=== PATIENT | male | born 1960 | race African-American/Black ===

== ENCOUNTER 2016-09-07 08:01 | Day surgery (SDC) | payer OTHER ==
[2016-09-03 10:04] LABS: HEMATOCRIT 48.1 % (42.0-52.0); HEMOGLOBIN 16.2 g/dL (14.0-18.0); MCH 30.5 PG (27-31); MCHC 33.7 g/dL (33-37); MCV 90.6 FL (81-99); MPV 9.7 FL (7.4-10.4); RBC 5.31 XMIL (4.7-6.1)
[2016-09-03 10:12] LABS: INR 1.04; PTT 26.6 Seconds (22.0-36.0)
[2016-09-03 10:26] LABS: AGAP 13; BUN 16 mg/dL (8-22); CALCIUM 9.4 mg/dL (8.8-10.2); CHLORIDE 98 mmol/L (98-107); COSMO 281; POTASSIUM 3.8 mmol/L (3.5-5.1); SODIUM 140 mmol/L (136-145); TCO2 29 mmol/L (25-35)
[2016-09-07] MEDS ORDERED: LR 1,000 ML ONE (08:13)
[2016-09-07] MEDS ORDERED: REGLAN ONE (08:13)
[2016-09-07] MEDS ORDERED: PEPCID ONE (08:13)
[2016-09-07] MEDS ORDERED: KEFZOL 2 GM/D5W 50 ML ONE (08:13)
[2016-09-07 16:02] LABS: URINE MICRO REVIEW NEEDED? NO; URINE SOURCE CATH
[2016-09-07] MEDS ORDERED: D5 1/2 NS 1,000 ML ONE (16:05)
[2016-09-07] MEDS ORDERED: FENTANYL ONE (16:06)
[2016-09-07] MEDS ORDERED: DIPRIVAN 1% ONE (16:07)
[2016-09-07] MEDS ORDERED: VERSED ONE (16:07)
[2016-09-07 16:09] LABS: BILIRUBIN URINE NEGATIVE (NEGATIVE); BLOOD URINE NEGATIVE (NEGATIVE); COLOR YELLOW; GLUCOSE URINE NEGATIVE (NEGATIVE); LEUKOCYTES URINE NEGATIVE (NEGATIVE); NITRITE URINE NEGATIVE (NEGATIVE); PH URINE 5.5; PROTEIN URINE NEGATIVE (NEGATIVE); TURBIDITY URINE CLEAR (CLEAR); UROBILINOGEN URINE NORMAL (NORMAL)
[2016-09-07 16:10] LABS: UR EPITHELIAL CELLS <10 /HPF (<10); URINE BACTERIA NEGATIVE /HPF; URINE RBC <10 /HPF (<10); URINE WBC <10 /HPF (<10)
[2016-09-07] MEDS: DILAUDID ONE ×2 (16:34→16:40)
[2016-09-07] MEDS ORDERED: LR 3,000 ML ONE (16:45)
[2016-09-07] MEDS ORDERED: XYLOCAINE-MPF 2% ONE (16:45)
[2016-09-07] MEDS ORDERED: QUELICIN (DOSE) ONE (16:45)
[2016-09-07] MEDS ORDERED: ZEMURON ONE (16:45)
[2016-09-07] MEDS ORDERED: NEOSTIGMINE ONE (16:45)
[2016-09-07] MEDS ORDERED: ZOFRAN ONE (16:45)
[2016-09-07] MEDS ORDERED: DECADRON ONE (16:45)
[2016-09-07] MEDS ORDERED: ROBINUL ONE (16:45)
[2016-09-07] MEDS ORDERED: OFIRMEV 1000 MG/ISOTONIC SOLN 100 ML ONE (16:45)
[2016-09-07] MEDS ORDERED: B & O 15A SUPP PR PRN (18:36)
[2016-09-07] MEDS ORDERED: NORCO-7.5 PO PRN (18:36)
[2016-09-07] MEDS ORDERED: SODIUM CHLORIDE 0.9% INJ PRN (18:36)
[2016-09-07] MEDS ORDERED: LABETALOL IV PRN (18:36)
[2016-09-07] MEDS ORDERED: ZOFRAN IV PRN (18:36)
[2016-09-07] MEDS ORDERED: DITROPAN PO PRN (18:36)
[2016-09-07] MEDS ORDERED: PHENERGAN IV PRN (18:36)
[2016-09-07] MEDS ORDERED: PHENERGAN PR PRN (18:36)
[2016-09-07] MEDS ORDERED: BENADRYL IV PRN (18:36)
[2016-09-07] MEDS ORDERED: TYLENOL PO PRN (18:36)
[2016-09-07] MEDS ORDERED: BENADRYL LIQUID PO PRN (18:36)
[2016-09-07] MEDS ORDERED: PHENERGAN PO PRN (18:36)
[2016-09-07] MEDS ORDERED: DILAUDID IV PRN (18:43)
[2016-09-07] MEDS ORDERED: PNEUMOVAX 23 IM ONE (20:00)
[2016-09-07] MEDS ORDERED: CHLORASEPTIC SORE THROAT LOZENGE MT PRN (20:42)
[2016-09-07] MEDS: D5 1/2 NS 1,000 ML IV SCH (22:34)
[2016-09-07] MEDS: COLACE PO SCH (22:36)
[2016-09-07] MEDS: KEFZOL 2 GM/D5W 50 ML IV SCH (22:37)
[2016-09-07] MEDS: PERIDEX MT SCH (22:42)
[2016-09-08] MEDS: D5 1/2 NS 1,000 ML IV SCH (05:28)
[2016-09-08] MEDS: KEFZOL 2 GM/D5W 50 ML IV SCH (05:57)
[2016-09-08 06:07] LABS: HEMATOCRIT 42.8 % (42.0-52.0); HEMOGLOBIN 14.3 g/dL (14.0-18.0); MCH 30.3 PG (27-31); MCHC 33.4 g/dL (33-37); MCV 90.7 FL (81-99); MPV 9.5 FL (7.4-10.4); RBC 4.72 XMIL (4.7-6.1)
[2016-09-08 06:20] LABS: AGAP 12; BUN 12 mg/dL (8-22); CALCIUM 8.9 mg/dL (8.8-10.2); CHLORIDE 98 mmol/L (98-107); COSMO 275; POTASSIUM 4.4 mmol/L (3.5-5.1); SODIUM 137 mmol/L (136-145); TCO2 27 mmol/L (25-35)
[2016-09-08 06:26] LABS: CREATININE BODY FLUID 2.1 mg/dL
[2016-09-08 07:41] VITALS: BP 105/63
[2016-09-08] MEDS: COLACE PO SCH (08:39)
[2016-09-08] MEDS: PERIDEX MT SCH (08:40)
[2016-09-08] MEDS ORDERED: NORVASC PO SCH (09:00)
--- NOTE | 2016-09-08 10:53 | PROGRESS NOTE ---
DATE: 09/08/2016 SUBJECTIVE: Mr. Mcbride had a good night overnight. He reports pain which is controlled with oral medications. He has ambulated this morning. OBJECTIVE: Vital signs: T 98.6, P 73, BP 105/63, urine output was recorded 4715 mL, his drain put out 80 mL. General: In no acute distress. Cardiovascular: Regular rhythm. Abdomen: Appropriately tender, nondistended. Incisions were clean, dry, and intact. KLEBER drain has serosanguineous fluid in the bulb, Oreilly catheter is draining straw-colored urine. LABORATORY DATA: His white cell count is 13,000, hematocrit is 43. Creatinine is 1.1. His KLEBER creatinine is 2.1 ASSESSMENT AND PLAN: A 56-year-old male status post laparoscopic lysis of adhesions, robot- assisted laparoscopic prostatectomy. I discussed with the patient appropriate postsurgical care. We agreed to remove the drain. He requested something for discomfort of the head of the penis from the catheter. PLAN: 1. Remove KLEBER drain. 2. Discharge home with Oreilly catheter. 3. He will follow up with me on 09/13/2016 for Oreilly catheter removal, pathology review, and wound check. 4. He is going home with prescriptions for [place] 10, Cipro, Ditropan, and lidocaine 2% jelly.
--- NOTE | 2016-10-11 12:40 | OPERATIVE NOTE ---
PROCEDURE DATE: 09/07/2016 SURGEON: Dr. Oneal Ramesh. PREOPERATIVE DIAGNOSES: 1. Prostate cancer. 2. History of open colectomy. PRIMARY PROCEDURES: 1. Extensive laparoscopic lysis of adhesions. 2. Robotic-assisted laparoscopic prostatectomy. INDICATIONS: A 56-year-old male with history of partial colectomy who presented with elevated PSA. He underwent prostate biopsy which revealed multifocal [place] 6 prostate adenocarcinoma. He was counseled on treatments options and elected to proceed with robotic prostatectomy. He was counseled on the risk of having adhesions after extensive surgery in the past. FINDINGS: Significant intra-abdominal adhesions of the mesentery and the bowel to the anterior abdominal wall. Adequate hemostasis at the conclusion of the case. Fairly wide bladder neck. Nearly watertight vesicourethral anastomosis. DESCRIPTION OF PROCEDURE: After obtaining informed consent, patient was brought to the operating room. Perioperative antibiotics and laryngeal mask anesthesia were administered. He was placed in lithotomy position with the upper and lower extremities appropriately padded. An 18-[place] Oreilly catheter was introduced in a sterile field after he was prepped and draped in sterile fashion. We made a small stab incision in his left upper quadrant, given this midline scar and history of colectomy. A Veress needle connected to a saline-filled syringe was introduced. We confirmed positive drop test, followed by aspiration of fluid in the syringe without evidence of GI contents or blood. We then insufflated his pneumoperitoneum to 15 mmHg. Bovie electrocautery was used to make skin incisions and I first placed a 12 mm executive assistant trocar in the left upper quadrant. The robotic camera was then introduced through the trocar and his abdominal cavity was inspected. He had an extensive amount of adhesions on the ventral abdominal wall which involved both mesentery and small bowel. I then placed an 8 mm trocar through the standard prostatectomy trocar site and used laparoscopic scissors to meticulously dissect the bowel and mesentery off the abdominal wall. In a couple of areas, bowel came close enough where I trimmed out a small amount of the abdominal wall fascia in order to eliminate the chance of bowel injury. I spent approximately 45 minutes dissecting the adhesions. Eventually, we were able to place the rest of the trocars and the adhesions were all taken down. We then placed the patient in steep Trendelenburg position and docked the robot. We began by mobilizing part of the sigmoid colon, as it appeared to be fairly stuck. I was eventually able to dissect toward his rectum and incise the peritoneum approximately 3 cm above the rectum. The right vas deferens was identified, isolated, and transected, followed by identification of the right seminal vesicle. I used monopolar scissors and avoided cautery laterally to decrease injury to neurovascular bundles. We then performed the same thing on the left side with dissection, isolation, and transection of vas deferens, followed by identification and isolation of left seminal vesicle. We then dissected anterior to the vas deferens to the level of the prostate, and posterior to the vas deferens through Denonvilliers fascia into perirectal plane. Following that, we turned our attention to gain access to the space of Retzius. The medial umbilical ligament was incised laterally on either side and the bladder was dropped. Fat was reflected off the endopelvic fascia. I then incised the endopelvic fascia and the lateral edge of prostate and followed dissection toward its apex. This was done bilaterally. Puboprostatic ligaments were sharply divided. The superficial dorsal venous complex was controlled with bipolar electrocautery. Deep dorsal venous complex was controlled with a 0 V-Loc suture in a [id number] fashion and anterior periosteal elevation. Subsequent to that, I turned attention to the level of the bladder neck, which was identified by gentle tugging on the Oreilly. We then made incision with monopolar cautery and eventually the bladder neck was visualized. It was transected circumferentially. It was somewhat wide due to the prosthetic protrusion into the bladder. Following that, I placed the prostate on anterior traction and developed a plane between the bladder and the prostate posteriorly. The plane and dissection extended until vas deferens and seminal vesicles were brought into view. Those were then placed on anterior traction and we began by reflecting the neurovascular bundle and pedicles posterolaterally. I minimized the cautery and we were able to reflect those without difficulties. He did have somewhat of a tough dissection between the prostate and the rectum, likely due to inflammation post biopsy, but eventually I was able to dissect that plane to the level of the apex. We then transected the apex and we did apply maximal urethral length preservation technique. The urethra was transected sharply and the prostate was delivered into the field. It was placed into the Endo Catch bag. Following that, we irrigated the operative field, without any evidence of excessive bleeding. I did use judicial spot cautery in 2 [address]. We then turned our attention to the vesicourethral anastomosis. Jc stitch was used to reapproximate periurethral and perivesical tissues with a 3-0 V-Loc suture in a running fashion. We then turned our attention to the formal anastomosis. At that point, I realized that the bladder neck was likely too wide and, hence, I used another V-Loc suture on either side of the bladder to narrow the bladder neck in a tennis-racquet fashion. Once the bladder neck appeared to be of decent caliber for anastomosis, we performed a formal anastomosis with a running 3-0 V-Loc suture in a clockwise and counterclockwise fashion cross-tying the sutures. We then replaced the Oreilly catheter and attempted to irrigate it. At that point, there was a fairly sizable leak posteriorly. Hence, I cut the suture out and did a rigid anastomosis once again with another 3-0 V-Loc running suture in a clockwise and counterclockwise fashion. This time, when the anastomosis was tested at 60 and 120 mL, there was minimal extravasation of fluid, not now posteriorly, but at the level where the bladder was narrowed in a tennis-racquet fashion. It was felt this was acceptable and left the catheter to gravity drainage. I did introduce a Antonio drain via the 4th arm trocar and secured it to the skin with 2-0 nylon suture. The robot was undocked after pneumoperitoneal pressure was decreased and we ruled out any evidence of active bleeding. We then extended his supraumbilical incision and removed the prostate in the Endo Catch bag. The wounds were copiously irrigated and 0 Vicryl suture was used to reapproximate the fascia in interrupted [id number] fashion. Following that, we irrigated the wound once again and then used 4-0 Monocryl for subcuticular closure. Dermabond skin adhesive was then applied. He was extubated and taken to PACU for further recovery, with Oreilly catheter to gravity drainage and Antonio drain to bulb suction. ESTIMATED BLOOD LOSS: 300 mL. COMPLICATIONS: None. DISPOSITION: To PACU and subsequently to floor for observation.
== END 2016-09-08 10:55 | disposition home or self-care (01) ==
LOC: OPS 08:01 → UNDOADMOB 15:26 → 4N 15:26 → OPS 09-08 10:55 → UNDODISOB 09-08 10:55
PROVIDERS: ATTEND Urology
DX: C61 Malignant neoplasm of prostate (principal); K66.0 Peritoneal adhesions (postprocedural) (postinfection); Z85.038 Personal history of other malignant neoplasm of large intestine; I10 Essential (primary) hypertension; E29.1 Testicular hypofunction; R97.20 Elevated prostate specific antigen [PSA]; R35.1 Nocturia; R53.83 Other fatigue; R68.82 Decreased libido; R39.11 Hesitancy of micturition; Z23 Encounter for immunization; Z90.49 Acquired absence of other specified parts of digestive tract; Z79.899 Other long term (current) drug therapy
CPT/HCPCS: 80048; 81001; 82570; 85027; 85610; 85730; 88309; 90732; 94761; 94799; J0131; J0330; J0690; J1100; J1170; J2250; J2405; J3010; J7120; J2710